=== PATIENT | female | born 1970 | race Caucasian/White ===

== ENCOUNTER 2024-09-24 10:59 | Outpatient (CLI) | payer OTHER, SELFPAY ==
--- NOTE | 2024-09-24 11:15 | CRLHL7_ITS ---
For Patients: As a result of the Century Cures Act, medical imaging exams and procedure reports are released immediately into your electronic medical record. You may view this report before your referring provider. If you have questions, please contact your health care provider. Indication: Right hip pain Comparison: September 17, 2024 Procedure : Informed consent was obtained. The site was marked. Time-out was performed. The skin of the right hip was cleansed with ChloraPrep. A sterile drape was placed. 8 cc of 1 percent lidocaine was administered for superficial anesthesia. Subsequently a 22 gauge spinal needle was introduced into the right hip joint under intermittent fluoroscopic guidance. Subsequently 7 cc 1 percent lidocaine and 2 cc 40 milligram/cc Depo-Medrol then placed into the right hip joint. The needle was removed and hemostasis achieved with direct pressure. A dressing was placed. The patient tolerated the procedure well without immediate complication. Total fluoroscopy time 12 seconds. Impression: Successful fluoroscopically guided right hip injection with 80 milligrams of Depo-Medrol. Dictated by Dago Lagunas MD @ 09/24/2024 12:35:29 PM (Electronically Signed)
== END 2024-09-24 11:00 | disposition home or self-care (01) ==
LOC: RAD 11:00
PROVIDERS: PCP Family Medicine; Visit Provider Physician Assistant Surgical
DX: M25.551 Pain in right hip (principal)
CPT/HCPCS: 20610; 77002; Q9966